=== PATIENT | male | born 1990 | race Caucasian/White ===

== ENCOUNTER 2020-12-18 15:00 | Emergency (ER) | payer OTHER ==
[~2020-12-18] VITALS: Ht 165.1 cm; Wt 59.0 kg
[2020-12-18 15:03] VITALS: BP 126/80
== END 2020-12-18 17:21 | disposition left against medical advice (07) ==
LOC: ER 16:57
DX: F10.129 Alcohol abuse with intoxication, unspecified (principal); Z86.59 Personal history of other mental and behavioral disorders; Y90.9 Presence of alcohol in blood, level not specified
CPT/HCPCS: 99283